=== PATIENT | male | born 1945 | race Caucasian/White ===

== ENCOUNTER → 2017-01-02 | Outpatient (CLI) | payer OTHER | LOC: FIMAGING 12:54 | PROVIDERS: ATTEND Orthopaedic Surgery Hand Surgery | DX: M75.122 Complete rotator cuff tear or rupture of left shoulder, not specified as traumatic (principal); M75.82 Other shoulder lesions, left shoulder; M75.22 Bicipital tendinitis, left shoulder; M25.412 Effusion, left shoulder ==

== ENCOUNTER → 2017-02-03 | Outpatient (CLI) | payer OTHER | LOC: BHLMT 13:15 | PROVIDERS: ATTEND Internal Medicine Interventional Cardiology | DX: I25.10 Atherosclerotic heart disease of native coronary artery without angina pectoris (principal) | CPT/HCPCS: 93017-PO; 93350-PO ==

== ENCOUNTER → 2017-02-10 | Outpatient (CLI) | payer OTHER | LOC: BHFA 09:15 | PROVIDERS: ATTEND Internal Medicine Cardiovascular Disease | DX: R06.02 Shortness of breath (principal); I25.10 Atherosclerotic heart disease of native coronary artery without angina pectoris; I10 Essential (primary) hypertension ==

== ENCOUNTER → 2017-02-17 | Outpatient (CLI) | payer OTHER | LOC: BHFA 09:30 | PROVIDERS: ATTEND Internal Medicine Interventional Cardiology | DX: I25.10 Atherosclerotic heart disease of native coronary artery without angina pectoris (principal); R06.02 Shortness of breath | CPT/HCPCS: 78452; 93017; A9500; J2785 ==

== ENCOUNTER → 2017-08-04 | Outpatient (CLI) | payer OTHER | LOC: FIMAGING 14:29 | PROVIDERS: ATTEND Internal Medicine Cardiovascular Disease | DX: N18.9 Chronic kidney disease, unspecified (principal); K76.0 Fatty (change of) liver, not elsewhere classified; Q61.3 Polycystic kidney, unspecified; I71.2 Thoracic aortic aneurysm, without rupture; I25.10 Atherosclerotic heart disease of native coronary artery without angina pectoris; I12.9 Hypertensive chronic kidney disease with stage 1 through stage 4 chronic kidney disease, or unspecified chronic kidney disease ==

== ENCOUNTER 2017-11-01 12:02 | Inpatient (IN) | payer OTHER ==
[2017-11-01] MEDS ORDERED: IPRATROPIUM/ALBUTEROL 3 ML DEYVIAL IH ONE (13:36)
[2017-11-01] MEDS ORDERED: ALBUTEROL 3 ML DEYVIAL IH ONE ×2 (13:36→15:02)
[2017-11-01] MEDS ORDERED: NS 1,000 ML IV ONE (13:36)
--- NOTE | 2017-11-01 13:39 | EDPHY ---
H & P Stated Complaint: cough Time Seen by Provider: 11/01/17 13:18 HPI/ROS: CHIEF COMPLAINT: Cough HISTORY OF PRESENT ILLNESS: The patient is a 72 y/o male complaining of a cough worsening over the last 3 weeks. He and his were visiting [facility] over the holiday and returned one week ago. He and his began feeling ill on their trip and were evaluated at urgent care at the end of September. He completed a course of azithromycin and has been using cough medicine without improvement. He saw his lamination spinner on for the same symptoms, but his cough felt improved at that time. Since then his cough has worsened and he describes violent coughing fits that cause headaches. He has diffuse myalgias, intermittent mild diaphoresis, and feels dehydrated. He's also been alternating between diarrhea and constipation. Two days ago, his who has similar symptoms fell and he was unable to help her off the floor for 2 days. Their daughter contacted EMS today upon learning about this. His is currently being evaluated here and is positive for flu A. Patient did get a flu vaccination this season. He denies diagnosed respiratory disease history, but says two doctors have recommended Symbicort to him in the last several months. He had open heart surgery for an aortic aneurysm, CABG, and has CAD in addition to diabetes and hypertension. No documented fever, chills, chest pain, palpitations, vomiting, urinary complaints, lightheadedness. REVIEW OF SYSTEMS: Aside from elements discussed in the HPI, a comprehensive 10-point review of systems was reviewed and is negative. PAST MEDICAL HISTORY: 1. Open heart surgery for ascending aortic aneurysm 2013 2. Possible undiagnosed respiratory disease - given trials of Symbicort 3. CAD post CABG 4. Diabetes type II 5. Hypertension 6. Psoriasis 7. Pneumonia 8. Rotator cuff surgery, left knee replacement. SOCIAL HISTORY: Never smoker. , also ill in the ED. Daughter lives in [place]. Display Coordinator: Dr. Rizzo VITAL SIGNS: Reviewed by me. Borderline hypoxic at 89% GENERAL: Well-developed, mildly obese, resting comfortably in no respiratory distress. Occasional cough. HEENT: Atraumatic. Eyes: No icterus, no injection. Mouth: moist mucous membranes. No erythema or lesions. Neck: supple with no adenopathy. LUNGS: Distant but clear to auscultation bilaterally, no wheezes, rhonchi or rales. CARDIAC: Distant. Regular rate and rhythm, no rubs, murmurs or gallops. ABDOMEN: Soft, nontender, nondistended, bowel sounds normal. BACK: No CVA tenderness. EXTREMITIES: No trauma. No edema. Range of motion is normal throughout. NEURO: Alert and oriented, grossly nonfocal. SKIN: Warm and dry, no rash. PSYCHIATRIC: Normal mentation, no agitation. Portions of this note were transcribed by a medical device engineer. I personally performed a history, physical exam, medical decision making, and confirmed accuracy of information the transcribed note. - Personal History Current Tetanus/Diphtheria Vaccine: Yes Current Tetanus Diphtheria and Acellular Pertussis (TDAP): Yes - Medical/Surgical History Hx Asthma: Yes Hx Chronic Respiratory Disease: Yes Hx Diabetes: Yes Hx Cardiac Disease: Yes Hx Renal Disease: No Hx Cirrhosis: No Hx Alcoholism: No Hx HIV/AIDS: No Hx Splenectomy or Spleen Trauma: No Other PMH: gout, ascending aorta repair, L/R rotator cuff surgery, L knee replacement, DM2, psoriatic arthritis, HTN, CABG, psoiasis, PNA - Social History Smoking Status: Never smoked Constitutional: Initial Vital Signs Temperature (C) 36.8 C 11/01/17 12:16 Heart Rate 87 11/01/17 12:16 Respiratory Rate 16 11/01/17 12:16 Blood Pressure 116/60 11/01/17 12:16 O2 Sat (%) 89 L 11/01/17 12:16 O2 Delivery Mode Nasal Cannula O2 (L/minute) 1 Allergies/Adverse Reactions: No Known Allergies Allergy (Unverified 11/01/17 12:13) Home Medications: Medication Instructions Recorded Adalimumab [Humira] 40 mg SQ MO 11/01/17 Allopurinol [Allopurinol 300 MG 600 mg PO DAILY 11/01/17 (RX)] Aspirin [Aspirin 81mg (*)] 81 mg PO DAILY 11/01/17 Azelastine HCl [Astepro] 2 sprays EACHNARE DAILY 11/01/17 Budesonide/Formoterol 160/4.5 1 dose IH DAILY 11/01/17 [Symbicort 160-4.5 Mcg Inh (*)] C/E/Zn/Cu/OM3/DHA/EPA/LUT/ZEAX 1 each PO BID 11/01/17 [Preservision Areds 2 Softgel] Dulaglutide [Trulicity] 1.5 mg SQ FR 11/01/17 Esomeprazole Mag Trihydrate 40 mg PO DAILY 11/01/17 [Nexium] Ezetimibe [Zetia 10 MG (*)] 10 mg PO DAILY 11/01/17 Fluticasone Nasal [Flonase Nasal 2 sprays EACHNARE DAILY 11/01/17 [place] (RX)] Hydrochlorothiazide [HCTZ (*)] 25 mg PO DAILY 11/01/17 Metoprolol Succinate Xr [Toprol Xl 150 mg PO HS 11/01/17 50 mg (*)] Pramipexole Di-HCl [Mirapex 0.25 0.5 mg PO HS 11/01/17 mg (*)] TESTOSTERONE [Androgel 1.62% pump] 1 paula TD DAILY 11/01/17 Valsartan [Diovan] 320 mg PO DAILY 11/01/17 metFORMIN HCL [Glucophage 500 mg 500 mg PO BIDMEAL 11/01/17 (*)] predniSONE 5 mg PO DAILY 11/01/17 Medical Decision Making - Diagnostics Imaging Results: CXR: Impression: Compensated CHF in a patient with previous CABG surgery. No pneumonia. Dictated By: Newton Rangel MD Imaging: Discussed imaging studies w/ on call Radiologist, I viewed and interpreted images myself ED Course/Re-evaluation: This is a 72 y/o male with cardiac disease, open heart surgery, diabetes, and hypertension who presents with a 3-week history of cough that has not improved with antibiotics and OTC medications. His is positive for the flu and sick with similar symptoms. He has distant but clear breath sounds. Presentation suspicious for influenza. Plan for IV, labs, EKG, chest x-ray. Duo neb and 1L IV NS administered. EKG: sinus rhythm, nonspecific st/t changes. Chest x-ray: Increased interstitial markings from prior chest x-ray could be CHF , no infiltrate, prior CABG Flu A+. Creatinine 2.5, higher than any previous labs. Reassessed patient and discussed work up. Recommended admission for renal insufficiency and worsening cough with hypoxemia. He agrees with plan for admission. Spoke with hospitalist service. Dr. Willingham accepts admission. Differential Diagnosis: Differential diagnosis for the patient's cough and dyspnea was considered including but not limited to viral versus bacterial bronchitis, asthma, COPD, pulmonary emboli, upper respiratory infection, lower respiratory infection, congestive heart failure, and cardiac causes. Consult/Admit Bed Type: Wilmer [place] - Data Points Laboratory Results: Laboratory Results 11/02/17 04:13 11/02/17 04:13 Microbiology Results: MICROBIOLOGY 11/01/17 18:00 Urine,Clean Catch Urine Culture - Final Enterococcus Faecalis 11/01/17 17:10 Blood Blood Culture - Preliminary 11/01/17 16:15 Blood Blood Culture - Preliminary Medications Given: Acetaminophen (Tylenol) 650 mg PO Q4HRS PRN PRN Reason: Pain, Mild/Fever, Can Take PO Stop: 04/30/18 15:15 Last Admin: 11/04/17 04:42 Dose: 650 mg Albuterol (Proventil Neb) 3 ml IH Q2HRS PRN PRN Reason: Short of Breath/Dyspnea Stop: 04/30/18 15:15 Last Admin: 11/03/17 17:51 Dose: 3 ml Allopurinol (Allopurinol) 600 mg PO DAILY CONNER Stop: 05/01/18 08:59 Last Admin: 11/04/17 08:46 Dose: 600 mg Aspirin (Aspirin) 81 mg PO DAILY CONNER Stop: 05/01/18 08:59 Last Admin: 11/04/17 08:47 Dose: 81 mg Benzonatate (Tessalon Pearles) 100 mg PO TID PRN PRN Reason: Cough, Mild Stop: 05/01/18 01:05 Last Admin: 11/04/17 08:46 Dose: 100 mg Budesonide/Formoterol Fumarate (Symbicort 160-4.5 Mcg Inhaler) 2 puffs IH DAILY CONNER Stop: 05/02/18 08:59 Last Admin: 11/04/17 08:53 Dose: 2 puffs Ezetimibe (Zetia) 10 mg PO DAILY CONNER Stop: 05/01/18 08:59 Last Admin: 11/04/17 08:47 Dose: 10 mg Enoxaparin Sodium (Lovenox) 40 mg SC BID CONNER Stop: 05/01/18 20:59 Last Admin: 11/04/17 08:47 Dose: 40 mg Fluticasone Propionate (Flonase Nasal [place]) 2 sprays EACHNARE DAILY CONNER Stop: 05/01/18 08:59 Last Admin: 11/04/17 09:33 Dose: 2 sprays Guaifenesin (Mucinex) 600 mg PO BID CONNER Stop: 04/30/18 20:59 Last Admin: 11/04/17 08:47 Dose: 600 mg Guaifenesin/Dextromethorphan (Robitussin Dm Oral Liquid) 10 ml PO Q4HRS PRN PRN Reason: Cough, Moderate Stop: 04/30/18 15:15 Last Admin: 11/04/17 04:42 Dose: 10 ml Metoprolol Succinate (Toprol Xl) 150 mg PO HS CONNER Stop: 05/01/18 20:59 Last Admin: 11/03/17 19:50 Dose: 150 mg Miscellaneous Medication (Azelastine Hcl [Astepro]) 2 sprays EACHNARE DAILY CONNER Stop: 05/01/18 08:59 Last Admin: 11/04/17 09:23 Dose: 2 sprays Miscellaneous Medication (Dulaglutide [Trulicity]) 1.5 mg SQ FR CONNER Stop: 05/03/18 08:59 Last Admin: 11/04/17 09:23 Dose: 1.5 mg Multivitamins/Minerals (Preservision Areds2 Formula) 1 each PO BID CONNER Stop: 05/01/18 20:59 Last Admin: 11/04/17 08:47 Dose: 1 each Oseltamivir Phosphate (Tamiflu Oral Suspension) 30 mg PO BIDMEAL CONNER Stop: 11/06/17 08:01 Last Admin: 11/04/17 08:46 Dose: 30 mg Pantoprazole Sodium (Protonix) 40 mg PO DAILY CONNER Stop: 05/01/18 08:59 Last Admin: 11/04/17 08:46 Dose: 40 mg Pramipexole Dihydrochloride (Mirapex) 0.5 mg PO HS CONNER Stop: 05/01/18 20:59 Last Admin: 11/03/17 20:05 Dose: 0.5 mg Prednisone (Prednisone) 5 mg PO DAILY CONNER Stop: 05/01/18 08:59 Last Admin: 11/04/17 08:46 Dose: 5 mg Discontinued Medications Albuterol (Proventil Neb) 3 ml IH EDNOW ONE Stop: 11/01/17 13:37 Last Admin: 11/01/17 13:49 Dose: 3 ml Albuterol (Proventil Neb) 3 ml IH EDNOW ONE Stop: 11/01/17 15:03 Last Admin: 11/01/17 15:05 Dose: 3 ml Albuterol/Ipratropium (Duoneb) 3 ml IH EDNOW ONE Stop: 11/01/17 13:37 Last Admin: 11/01/17 13:49 Dose: 3 ml Budesonide/Formoterol Fumarate (Symbicort 160-4.5 Mcg Inhaler) 60 puffs IH DAILY CONNER Stop: 05/02/18 08:59 Last Admin: 11/03/17 08:28 Dose: 2 puffs Furosemide (Lasix Injection) 20 mg IVP ONCE ONE Stop: 11/03/17 11:59 Last Admin: 11/03/17 12:17 Dose: 20 mg Heparin Sodium (Porcine) (Heparin Sc Injection) 5,000 unit SC Q8 CONNER Stop: 04/30/18 21:59 Last Admin: 11/02/17 04:23 Dose: 5,000 unit Sodium Chloride (Ns) 1,000 mls @ 0 mls/hr IV ONCE ONE; Wide Open PRN Reason: Protocol Stop: 11/01/17 13:37 Last Admin: 11/01/17 13:49 Dose: 1,000 mls Sodium Chloride (Ns) 500 mls @ 1,000 mls/hr IV EDNOW ONE PRN Reason: Protocol Stop: 11/01/17 15:36 Last Admin: 11/01/17 15:36 Dose: 500 mls Sodium Chloride (Ns) 1,000 mls @ 75 mls/hr IV CONT CONNER Stop: 04/30/18 15:29 Last Admin: 11/02/17 09:40 Dose: 1,000 mls Sodium Chloride (Ns) 500 mls @ 0 mls/hr IV ONCE ONE PRN Reason: Wide Open Stop: 11/01/17 15:26 Last Admin: 11/01/17 15:32 Dose: Not Given Sodium Chloride (Ns) 3,900 mls @ 7,800 mls/hr 30 ml/kg infuse over 30 min ( 3900 ml) IV EDNOW ONE PRN Reason: Protocol Stop: 11/01/17 16:33 Last Admin: 11/01/17 16:11 Dose: 3,900 mls Magnesium Sulfate/Dextrose (Magnesium Sulf 1 Gm (Premix)) 100 mls @ 100 mls/hr IV ONCE ONE Stop: 11/04/17 09:27 Last Admin: 11/04/17 08:46 Dose: 100 mls Oseltamivir Phosphate (Tamiflu) 75 mg PO BIDMEAL CONNER Stop: 11/06/17 08:01 Last Admin: 11/02/17 08:28 Dose: 75 mg Departure - Departure Disposition: [facility] Acute Clinical Impression: Renal insufficiency, Influenza A, Shortness of breath, Cough, Hypoxemia Condition: Fair Report Scribed for: Conchita Duncan Report Scribed by: Amarilis Ward Date of Report: 11/01/17 Time of Report: 15:32
--- NOTE | 2017-11-01 13:57 | CPEKG ---
Heart Rate: 78 RR Interval: 769 P-R Interval: 192 QRSD Interval: 88 QT Interval: 364 QTC Interval: 415 P [place]: 50 QRS [place]: 78 T Wave [place]: 68 EKG Severity - BORDERLINE ECG - EKG Impression: SINUS RHYTHM EKG Impression: PROBABLE LEFT ATRIAL ABNORMALITY EKG Impression: BORDERLINE T ABNORMALITIES, ANT-LAT LEADS Electronically Signed By: Conchita Duncan 01-Nov-2017 21:58:07
[2017-11-01 14:06] LABS: PLATELET COUNT 165 10^3/uL (150-400)
[2017-11-01] MEDS ORDERED: ALBUTEROL 3 ML DEYVIAL ONE (14:59)
[2017-11-01] MEDS ORDERED: NS 500 ML IV ONE ×2 (15:07→15:25)
[2017-11-01] MEDS ORDERED: ONDANSETRON DISINTEGRATING 4 MG TAB PO PRN (15:16)
[2017-11-01] MEDS ORDERED: ONDANSETRON 4 MG/2 ML VIAL IVP PRN (15:16)
[2017-11-01] MEDS ORDERED: OSELTAMIVIR PHOSPHATE 75 MG CAP ONE (15:42)
[2017-11-01] MEDS: NS 1,000 ML IV SCH ×2 (15:43→23:02)
[2017-11-01] MEDS: OSELTAMIVIR PHOSPHATE 75 MG CAP PO SCH (15:46)
[2017-11-01] MEDS ORDERED: NS 3,900 ML IV ONE (16:04)
--- NOTE | 2017-11-01 16:22 | GHP ---
[f rep st] HISTORY AND PHYSICAL DATE OF ADMISSION: 11/01/2017 CHIEF COMPLAINT: Cough, shortness of breath and weakness. HISTORY OF PRESENT ILLNESS: The patient is a 72-year-old male with history of coronary artery disease, prior CABG and chronic kidney disease, who presents to the emergency department with 3 weeks of upper respiratory symptoms. His symptoms started while he was on vacation with his family in [place]. He developed fever and cough. He was treated in the outpatient setting with azithromycin. His symptoms really did not improve. He has continued to have cough, fatigue and reports decreased oral intake. His is also ill with influenza and is being admitted to the hospital. In the emergency department he was noted to desaturate into the 80s on room air, and has received nebulizer treatments. He denies any chest pressure or nausea. His flu swab was positive in the emergency department, and he is admitted to the hospital for further management. PAST MEDICAL AND SURGICAL HISTORY: 1. Coronary artery disease with history of CABG. 2. AAA repair. 3. Chronic kidney disease. 4. Gout. 5. GERD. 6. Hypertension. 7. ? diabetes mellitus. MEDICATIONS: Please see [facility] for completed outpatient medication list. ALLERGIES: He has no known drug allergies. FAMILY HISTORY: Reviewed and noncontributory. SOCIAL HISTORY: The patient is . He lives independently. His is also ill with influenza at this time, and he feels he cannot care for her due to his own weakness and illness. They have a daughter who lives locally. He denies tobacco or alcohol. REVIEW OF SYSTEMS: A 10-point review of systems was performed and is negative as per HPI. OBJECTIVE: VITAL SIGNS: Temperature is 36.8, blood pressure 99/51, heart rate 82, respiratory rate 17, he is 91% on room air. GENERAL: Patient is awake, alert, oriented, in no acute distress. HEENT: Head is atraumatic, normocephalic. Pupils equal, round, react to light. Ocular motion intact. Oropharynx clear. Mucous membranes dry. NECK: Supple. There is no JVD. HEART: Regular rate and rhythm without murmur. LUNGS: Diminished with decreased air exchange, but no wheezes, rales, or rhonchi are detected and overall his lungs are clear. ABDOMEN: Soft, obese, nondistended, nontender. EXTREMITIES: Without cyanosis, clubbing, or edema. NEUROLOGIC: Grossly nonfocal. He moves all 4 extremities. Strength is symmetric and 5/5 in upper and lower extremities bilaterally. LABORATORY DATA: CBC reveals a white blood cell count of 9000, platelets are normal. Lactic acid is 2.6. Basic metabolic panel reveals normal electrolytes , BUN is 50, creatinine 2.5, glucose 121. Troponin is 0.03. Flu A is positive. Chest x-ray is personally reviewed and interpreted, shows chronic stable cardiomegaly. No evidence of acute pulmonary edema or focal infiltrates. There is evidence of his prior CABG. EKG shows normal sinus rhythm. No ST-segment or T-wave changes suggestive of acute ischemia. ASSESSMENT AND PLAN: The patient is a 72-year-old male with history of coronary artery disease, hypertension, and chronic kidney disease, who is admitted to the hospital with influenza. 1. Acute hypoxemic respiratory failure secondary to influenza A. The patient was saturating in the 90s on room air during my evaluation. He will be started on Tamiflu, anti-tussives, expectorant. We will provide nebulizer treatments. Steroids are not indicated at this time in the absence of wheezing. He will require some IV fluids for his volume depletion. 2. Acute on chronic kidney disease. His baseline creatinine is around 1.5 and he presents with creatinine of 2.5 and elevated BUN of 50, suggestive of a prerenal state. He has received 1 L of normal saline in the emergency department. His blood pressure is slightly low at 91/47 at this time. We will provide another normal saline bolus and continue gentle IV hydration overnight and recheck his labs in the morning. 3. Elevated lactate. I think this is related to hypoperfusion in the setting of volume depletion. I do not think he has sepsis or bacterial infection. We will repeat a lactate now, and expect this to improve with hydration. 4. History of coronary artery disease status post coronary artery bypass graft. The patient has no chest pain. His EKG is nonischemic. His troponin is negative. We will continue his outpatient medications. I also reviewed a myocardial perfusion stress test in February of 2017, which was negative for ischemia and showed an ejection fraction of 68%. 5. Hypertension. His SBP was in the 90's in the ED. Anti-hypertensives are held for now, resume as indicated. 6. Deep venous thrombosis prophylaxis. The patient is moderate risk. We will give heparin given his renal status. 7. Code status: Patient is full code. 8. Disposition: Patient admitted to observation status. If he continues to improve, he may be a candidate for discharge tomorrow. /[id number]/MODL MTDD
[2017-11-01 16:28] LABS: INR 1.01 (0.83-1.16); PROTIME(PATIENT) 13.5 SEC (12.0-15.0)
[2017-11-01] MEDS: GUAIFENESIN/DM 10 ML UDCUP PO PRN ×2 (17:41→22:00)
[2017-11-01] MEDS: guaiFENesin 600 MG TAB.ER PO SCH (20:29)
[2017-11-01] MEDS: ALBUTEROL 3 ML DEYVIAL IH PRN (21:33)
[2017-11-01] MEDS: HEPARIN 5,000 UNIT/0.5 ML SYR SC SCH (21:59)
[2017-11-01] MEDS: ACETAMINOPHEN 325 MG TAB PO PRN (22:07)
[2017-11-02] MEDS: ALBUTEROL 3 ML DEYVIAL IH PRN ×2 (01:05→21:36)
[2017-11-02] MEDS: BENZONATATE 100 MG CAP PO PRN ×2 (01:37→21:17)
[2017-11-02] MEDS: GUAIFENESIN/DM 10 ML UDCUP PO PRN ×2 (01:52→21:17)
[2017-11-02] MEDS: ACETAMINOPHEN 325 MG TAB PO PRN ×2 (01:52→15:49)
[2017-11-02] MEDS: HEPARIN 5,000 UNIT/0.5 ML SYR SC SCH (04:23)
[2017-11-02 04:34] LABS: PLATELET COUNT 116 10^3/uL (150-400)
[2017-11-02] MEDS: guaiFENesin 600 MG TAB.ER PO SCH ×2 (08:28→21:17)
[2017-11-02] MEDS: ALLOPURINOL 300 MG TAB PO SCH (08:28)
[2017-11-02] MEDS: OSELTAMIVIR PHOSPHATE 75 MG CAP PO SCH (08:28)
[2017-11-02] MEDS: EZETIMIBE 10 MG TAB PO SCH (08:28)
[2017-11-02] MEDS: ASPIRIN 81 MG CHEWABLE TAB PO SCH (08:28)
[2017-11-02] MEDS: PANTOPRAZOLE SODIUM 40 MG TAB PO SCH (08:28)
[2017-11-02] MEDS: predniSONE 5 MG TAB PO SCH (08:28)
[2017-11-02] MEDS: FLUTICASONE NASAL 120 SPRAYS/16 GM MDI EACHNARE SCH (08:33)
[2017-11-02] MEDS: NS 1,000 ML IV SCH (09:40)
--- NOTE | 2017-11-02 10:23 | ASMTCASEMG ---
Living Arrangements What is your living Answers: With Spouse arrangement? Who do you live with? Type Of Residence What kind of residence do Answers: House you live in? Discharge Plan Comments Coordination Status Comments Notes: Pt is a 72 y/o man admitted for renal insufficiency, influenza A and shortness of breath. Pts is also here at [facility] in room 220 for the flu. Therapies have been ordered and awaiting recommendations. Needs are TBD at this time. CM to follow. Plan: TBD Date Signed: 11/02/2017 10:23 AM Electronically Signed By:ANGELA Stinson
[2017-11-02] MEDS: AZELASTINE HCL EACHNARE SCH (11:03)
--- NOTE | 2017-11-02 14:51 | ASMTCMCOM ---
CM Note CM Note Notes: CM spoke w/ Miranda, daughter regarding d/c POC. CM provided Miranda with d/c options such as HC and home w/ supervision. CM provided Miranda Senior blue book and list of skilled and unskilled HC agencies. OT is recommending home independent. CM to follow. Date Signed: 11/02/2017 02:50 PM Electronically Signed By:ANGELA Stinson
[2017-11-02] MEDS: OSELTAMIVIR 6 MG/ML UDSYR PO SCH (17:00)
--- NOTE | 2017-11-02 17:14 | HOSPPROG ---
Hospitalist Progress Note Assessment/Plan: #Influenza A #Acute on chronic renal failure #HTN #Pedal Edema #Acute hypoxic respiratory failure #generalized weakness and deconditioning Plan: -tamiflu -stop IVF -consider Lasix tomorrow -PT/OT -change to inpatient Subjective: feels slightly better. still hypoxic. has some pedal edema Objective: Vital Signs Temp Pulse Resp BP Pulse Ox 36.8 C 102 H 20 138/77 H 94 11/02/17 15:30 11/02/17 15:30 11/02/17 15:30 11/02/17 15:30 11/02/17 15:30 Laboratory Results 11/02/17 04:13 11/02/17 04:13 11/01/17 11/02/17 11/03/17 05:59 05:59 05:59 Intake Total 5700 750 Output Total 220 1300 Balance 5480 -550 PT 13.5 SEC (12.0-15.0) 11/01/17 13:55 INR 1.01 (0.83-1.16) 11/01/17 13:55 - Physical Exam Constitutional: no apparent distress Eyes: PERRL Ears, Nose, Mouth, Throat: moist mucous membranes, hearing normal Cardiovascular: regular rate and rhythym, edema Respiratory: reduced air movement, expiratory wheeze Gastrointestinal: normoactive bowel sounds, soft, non-tender abdomen Skin: warm Musculoskeletal: generalized weakness Neurologic: AAOx3 Psychiatric: interacting appropriately, not anxious, not encephalopathic Lymph, Heme, Immunologic: No petechiae ICD10 Worksheet Patient Problems: Problems Problem Status Onset Cough Acute Hypoxemia Acute Influenza A Acute Renal insufficiency Acute Shortness of breath Acute
--- NOTE | 2017-11-02 17:46 | PDMN ---
Medical Necessity Medical necessity: Change to IP, as of 11/02/17, per MD; los >2 mn for ongoing management/tx of Influenza A, acute on chronic renal failure, htn, pedal edema, acute hypoxic respiratory failure & generalized weakness/deconditioning; admit for further monitoring, supportive care & therapies; hx CAD, CABG, AAA repair, CKD, htn & diabetes; per progress note & order 11/02/17
[2017-11-02] MEDS: ENOXAPARIN 40 MG/0.4 ML SYR SC SCH (21:17)
[2017-11-02] MEDS: PRESERVISION AREDS2 FORMULA EYE VIT 1 EACH PO SCH (21:18)
[2017-11-02] MEDS: METOPROLOL SUCCINATE XR 50 MG TAB PO SCH (21:18)
[2017-11-02] MEDS: PRAMIPEXOLE 0.25 MG TAB PO SCH (21:18)
[2017-11-03] MEDS: GUAIFENESIN/DM 10 ML UDCUP PO PRN ×3 (04:17→23:47)
[2017-11-03] MEDS: BENZONATATE 100 MG CAP PO PRN (04:17)
[2017-11-03] MEDS: ACETAMINOPHEN 325 MG TAB PO PRN ×3 (04:27→17:28)
[2017-11-03] MEDS: PRESERVISION AREDS2 FORMULA EYE VIT 1 EACH PO SCH ×2 (07:57→19:50)
[2017-11-03] MEDS: ASPIRIN 81 MG CHEWABLE TAB PO SCH (07:57)
[2017-11-03] MEDS: ALLOPURINOL 300 MG TAB PO SCH (07:57)
[2017-11-03] MEDS: predniSONE 5 MG TAB PO SCH (07:57)
[2017-11-03] MEDS: ENOXAPARIN 40 MG/0.4 ML SYR SC SCH ×2 (07:58→19:50)
[2017-11-03] MEDS: PANTOPRAZOLE SODIUM 40 MG TAB PO SCH (07:58)
[2017-11-03] MEDS: EZETIMIBE 10 MG TAB PO SCH (07:58)
[2017-11-03] MEDS: guaiFENesin 600 MG TAB.ER PO SCH ×2 (07:58→19:50)
[2017-11-03] MEDS: FLUTICASONE NASAL 120 SPRAYS/16 GM MDI EACHNARE SCH (07:59)
[2017-11-03] MEDS: AZELASTINE HCL EACHNARE SCH (07:59)
[2017-11-03] MEDS: OSELTAMIVIR 6 MG/ML UDSYR PO SCH ×2 (08:01→17:28)
[2017-11-03] MEDS: ALBUTEROL 3 ML DEYVIAL IH PRN ×3 (08:25→17:51)
[2017-11-03] MEDS ORDERED: BUDESONIDE/FORMOTEROL 160/4.5 60 PUFFS/MDI IH SCH (09:00)
[2017-11-03] MEDS ORDERED: FUROSEMIDE 20 MG/2 ML VIAL IVP ONE (11:58)
[2017-11-03] MEDS: BUDESONIDE/FORMOTEROL 160/4.5 60 PUFFS/MDI IH SCH (12:21)
[2017-11-03] MEDS ORDERED: PROTOCOL MAGNESIUM 1 DOSE IV PRN (15:15)
[2017-11-03] MEDS ORDERED: PROTOCOL POTASSIUM 1 DOSE MISC PRN (15:15)
--- NOTE | 2017-11-03 15:18 | HOSPPROG ---
Hospitalist Progress Note Assessment/Plan: #Influenza A #Acute on chronic renal failure #HTN #Pedal Edema with cough #Acute hypoxic respiratory failure #generalized weakness and deconditioning #Hyperkalemia Plan: -Lasix x 1. This should help with the cough as well as the hyperkalemia -check Magnesium -tamiflu -off IVF -PT/OT -change to inpatient Subjective: + cough. + SOB. + increased pedal edema Objective: Vital Signs Temp Pulse Resp BP Pulse Ox 37.3 C 87 20 129/87 H 97 11/03/17 13:30 11/03/17 13:30 11/03/17 13:30 11/03/17 13:30 11/03/17 13:30 Laboratory Results 11/03/17 04:16 11/02/17 11/03/17 11/04/17 05:59 05:59 05:59 Intake Total 350 Output Total 600 Balance -250 PT 13.5 SEC (12.0-15.0) 11/01/17 13:55 INR 1.01 (0.83-1.16) 11/01/17 13:55 - Physical Exam Constitutional: no apparent distress Eyes: PERRL Ears, Nose, Mouth, Throat: moist mucous membranes, hearing normal Cardiovascular: regular rate and rhythym, edema (1-2+ LE) Respiratory: other (coarse) Gastrointestinal: normoactive bowel sounds Genitourinary: no bladder fullness Skin: warm Musculoskeletal: generalized weakness Neurologic: AAOx3 Psychiatric: interacting appropriately, not anxious, not encephalopathic ICD10 Worksheet Patient Problems: Problems Problem Status Onset Cough Acute Hypoxemia Acute Influenza A Acute Renal insufficiency Acute Shortness of breath Acute
--- NOTE | 2017-11-03 15:20 | ASMTCMCOM ---
CM Note CM Note Notes: Case reviewed in morning rounds w/ Dr. Kuo and Fiona, RN. Therapies have cleared pt to discharge home independent. CM spoke w/ daughter, Miranda regarding d/c POC. Anticipate d/c for tomorrow. CM available for changes. Plan: Independent Date Signed: 11/03/2017 03:19 PM Electronically Signed By:ANGELA Stinson
[2017-11-03] MEDS: METOPROLOL SUCCINATE XR 50 MG TAB PO SCH (19:50)
[2017-11-03] MEDS: PRAMIPEXOLE 0.25 MG TAB PO SCH (20:05)
[2017-11-04] MEDS: ACETAMINOPHEN 325 MG TAB PO PRN ×2 (04:42→23:36)
[2017-11-04] MEDS: GUAIFENESIN/DM 10 ML UDCUP PO PRN ×2 (04:42→18:04)
[2017-11-04 05:20] LABS: PLATELET COUNT 138 10^3/uL (150-400)
[2017-11-04] MEDS ORDERED: MAGNESIUM SULF 1 GM/DEXTROSE 100 ML IV ONE (08:28)
[2017-11-04] MEDS: OSELTAMIVIR 6 MG/ML UDSYR PO SCH ×2 (08:46→18:04)
[2017-11-04] MEDS: predniSONE 5 MG TAB PO SCH (08:46)
[2017-11-04] MEDS: BENZONATATE 100 MG CAP PO PRN ×2 (08:46→18:04)
[2017-11-04] MEDS: ALLOPURINOL 300 MG TAB PO SCH (08:46)
[2017-11-04] MEDS: PANTOPRAZOLE SODIUM 40 MG TAB PO SCH (08:46)
[2017-11-04] MEDS: ASPIRIN 81 MG CHEWABLE TAB PO SCH (08:47)
[2017-11-04] MEDS: EZETIMIBE 10 MG TAB PO SCH (08:47)
[2017-11-04] MEDS: guaiFENesin 600 MG TAB.ER PO SCH ×2 (08:47→20:55)
[2017-11-04] MEDS: PRESERVISION AREDS2 FORMULA EYE VIT 1 EACH PO SCH ×2 (08:47→20:55)
[2017-11-04] MEDS: ENOXAPARIN 40 MG/0.4 ML SYR SC SCH ×2 (08:47→20:52)
[2017-11-04] MEDS: BUDESONIDE/FORMOTEROL 160/4.5 60 PUFFS/MDI IH SCH (08:53)
[2017-11-04] MEDS ORDERED: Dulaglutide [Trulicity] 1.5 MG SQ SCH (09:00)
[2017-11-04] MEDS: AZELASTINE HCL EACHNARE SCH (09:23)
[2017-11-04] MEDS: FLUTICASONE NASAL 120 SPRAYS/16 GM MDI EACHNARE SCH (09:33)
[2017-11-04] MEDS: ALBUTEROL 3 ML DEYVIAL IH PRN ×2 (12:42→16:39)
--- NOTE | 2017-11-04 12:55 | ASMTCMCOM ---
CM Note CM Note Notes: Chart reviewed. Spoke to Katherine one of the Patient's daughters to update her on patient status. Both of her parent are here with influenza A. I updated her as far as the discharge plan. No discharge orders pending, CM to follow. Date Signed: 11/04/2017 12:54 PM Electronically Signed By:Melissa Lozano RN
--- NOTE | 2017-11-04 13:41 | HOSPPROG ---
Hospitalist Progress Note Assessment/Plan: 72y male with c/o cough and weakness. First encounter, chart reviewed. D/W Dr Kuo. #Influenza A cont tamiflu #Acute on chronic renal failure improving #HTN stable #Pedal Edema with cough decreased edema cough still present #Acute hypoxic respiratory failure mutlifactorial start levaquin #generalized weakness and deconditioning cont therapy #Hyperkalemia replace #Hypomagnesimia replace #Dispo possibly home in am if improving cont supportive care Subjective: Still feels terrible. Weak and coughing. Objective: Vital Signs Temp Pulse Resp BP Pulse Ox 37.1 C 87 20 129/79 H 92 11/04/17 08:00 11/04/17 12:43 11/04/17 12:43 11/04/17 08:00 11/04/17 12:43 Laboratory Results 11/04/17 05:09 11/04/17 05:09 11/03/17 11/04/17 11/05/17 05:59 05:59 05:59 Intake Total 350 400 Output Total 600 Balance -250 400 PT 13.5 SEC (12.0-15.0) 11/01/17 13:55 INR 1.01 (0.83-1.16) 11/01/17 13:55 - Physical Exam Constitutional: chronically ill appearing, obese, uncomfortable Eyes: PERRL, anicteric sclera, EOMI Ears, Nose, Mouth, Throat: moist mucous membranes, hearing normal, ears appear normal Cardiovascular: regular rate and rhythym, edema, No JVD Respiratory: no respiratory distress, reduced air movement, expiratory wheeze Gastrointestinal: No tenderness, No ascites, No guarding Skin: warm, normal color, No erythema Musculoskeletal: normal joint ROM, no joint effusions, generalized weakness Neurologic: AAOx3 Psychiatric: interacting appropriately, not encephalopathic, thought process linear ICD10 Worksheet Patient Problems: Problems Problem Status Onset Renal insufficiency Acute Influenza A Acute Shortness of breath Acute Cough Acute Hypoxemia Acute
[2017-11-04] MEDS: METOPROLOL SUCCINATE XR 50 MG TAB PO SCH (20:52)
[2017-11-04] MEDS: PRAMIPEXOLE 0.25 MG TAB PO SCH (20:52)
[2017-11-04 23:30] VITALS: RESP 18
[2017-11-05 07:50] VITALS: BP 154/82; TEMP 98.3
[2017-11-05] MEDS ORDERED: MAGNESIUM SULF 1 GM/DEXTROSE 100 ML IV ONE (08:24)
[2017-11-05] MEDS: predniSONE 5 MG TAB PO SCH (08:54)
[2017-11-05] MEDS: PANTOPRAZOLE SODIUM 40 MG TAB PO SCH (08:54)
[2017-11-05] MEDS: OSELTAMIVIR 6 MG/ML UDSYR PO SCH (08:54)
[2017-11-05] MEDS: ENOXAPARIN 40 MG/0.4 ML SYR SC SCH (08:54)
[2017-11-05] MEDS: EZETIMIBE 10 MG TAB PO SCH (08:54)
[2017-11-05] MEDS: PRESERVISION AREDS2 FORMULA EYE VIT 1 EACH PO SCH (08:54)
[2017-11-05] MEDS: ACETAMINOPHEN 325 MG TAB PO PRN (08:54)
[2017-11-05] MEDS: guaiFENesin 600 MG TAB.ER PO SCH (08:54)
[2017-11-05] MEDS: ASPIRIN 81 MG CHEWABLE TAB PO SCH (08:54)
[2017-11-05] MEDS: ALLOPURINOL 300 MG TAB PO SCH (08:54)
[2017-11-05] MEDS: AZELASTINE HCL EACHNARE SCH (08:55)
[2017-11-05] MEDS: FLUTICASONE NASAL 120 SPRAYS/16 GM MDI EACHNARE SCH (08:55)
[2017-11-05] MEDS: BUDESONIDE/FORMOTEROL 160/4.5 60 PUFFS/MDI IH SCH (09:47)
[2017-11-05 10:48] VITALS: PULSE 89; O2SAT 91
--- NOTE | 2017-11-05 17:26 | ASDISCHSUM ---
Discharge Information Plan Status:Home with No Needs Medically Cleared to Leave: Discharge Date:11/05/2017 02:25 PM CM D/C Disposition:Home, Routine, Self-Care ADT D/C Disposition:Home, Routine, Self-Care Projected Discharge Date:11/05/2017 02:25 PM Transportation at D/C:Family Discharge Delay Reason: Follow-Up Date:11/05/2017 02:25 PM Discharge Slot: Final Diagnosis: Placement Information Patient Contact Information Contact Name:BETY Relationship: Address:[address] Work Phone: [facility] Phone: [facility]/Zip Code:[place] [address] Email: Financial Information Financial Class: Primary Plan Desc:MEDICARE INPATIENT Primary Plan Number:[id number] Secondary Plan Desc:[facility] Secondary Plan Number:[id number] Assessment Information [facility] Initial CM Assessment Living Arrangements What is your living Answers: With Spouse arrangement? Who do you live with? Type Of Residence What kind of residence do Answers: House you live in? Discharge Plan Comments Coordination Status Comments Notes: Pt is a 72 y/o man admitted for renal insufficiency, influenza A and shortness of breath. Pts is also here at [facility] in room 220 for the flu. Therapies have been ordered and awaiting recommendations. Needs are TBD at this time. CM to follow. Plan: TBD Date Signed: 11/02/2017 10:23 AM Electronically Signed By:ANGELA Stinson [facility] CM Progress Note CM Note CM Note Notes: CM spoke w/ Miranda, daughter regarding d/c POC. CM provided Miranda with d/c options such as HC and home w/ supervision. CM provided Miranda Senior blue book and list of skilled and unskilled HC agencies. OT is recommending home independent. CM to follow. Date Signed: 11/02/2017 02:50 PM Electronically Signed By:ANGELA Stinson [facility] L[place]ASZ Progress Note CM Note LUKASZ Note Notes: Case reviewed in morning rounds w/ Dr. Kuo and HIEU Jaimes. Therapies have cleared pt to discharge home independent. CM spoke w/ daughterMiranda regarding d/c POC. Anticipate d/c for tomorrow. CM available for changes. Plan: Independent Date Signed: 11/03/2017 03:19 PM Electronically Signed By:ANGELA Stinson [facility] [place] Progress Note LUKASZ Smith CM Note Notes: Chart reviewed. Spoke to Katherine one of the Patient's daughters to update her on patient status. Both of her parent are here with influenza A. I updated her as far as the discharge plan. No discharge orders pending, CM to follow. Date Signed: 11/04/2017 12:54 PM Electronically Signed By:Melissa Lozano RN Case Management Discharge Plan Note Case Management Discharge Discharge Order Complete? Answers: Yes Patient to Obtain Answers: via Family Medications Transportation Arranged Answers: Family/Friends Family Notified Answers: Yes Discharge Comments Notes: Pt. d/cing independently today. Siria met w/ daughter Miranda in Pt's 's room today. also here as inpatient for flu. Miranda states colleague CM provided list of unskilled nursing agencies for Pt. and . Discussed skilled vs unskilled providers. Family good with plan. Miranda plans to be at home with parents tonight at the least. Date Signed: 11/05/2017 02:14 PM Electronically Signed By:Maite Jarvis LCSW Intervention Information Intervention Type:*LOS-Signed Date of Service:11/02/2017 09:50 AM Patient Type:Observation Staff Member:Inés Benjamin Hours: Discipline: Severity: Comment:
--- NOTE | 2017-11-05 19:16 | GDS ---
[f rep st] DISCHARGE SUMMARY DISCHARGE DIAGNOSES: 1. Influenza. 2. Acute hypoxemic respiratory failure. 3. Acute on chronic renal failure. 4. Hypertension. 5. Pedal edema. 6. Generalized weakness with deconditioning. 7. Hyperkalemia. 8. Hypomagnesemia. PHYSICAL EXAM: GENERAL: The patient is alert. VITAL SIGNS: Afebrile 36.8, pulse is 80, respirator y rate is 18, blood pressure is 154/82. He is saturating at 90% on room air. I have seen and evalua tomasz the patient on the day of discharge. HOSPITAL COURSE: The patient is a 72-year-old male, who presented to the emergency room with complai nts of shortness of breath and weakness. He was evaluated and diagnosed with: 1. Influenza A. during this hospitalization, he was treated with Tamiflu and has improved. 2. Acute on chronic renal failure. This is improving. The patient has returned to his baseline candace al function. 3. Hypertension. It is mildly elevated today. However, the patient has not been receiving all of h is home antihypertensive medications. These have been re-initiated at the time of disposition, and h e will continue these in the outpatient setting. 4. Acute hypoxemic respiratory failure, multifactorial. This condition has resolved, and he will no t require supplemental oxygen at the time of disposition. 5. Generalized weakness with deconditioning. He has been evaluated by therapy, and feel that it is safe for him to be discharged home. 6. Electrolyte imbalances. These have been resolved. 7. Disposition. The patient will be discharged home with his and his daughter. His will receive home health care. There are no pending studies. DISCHARGE MEDICATIONS: Please refer to EMR form. I have provided a prescription for Levaquin, as we ll as Tamiflu at the time of disposition. There are no pending studies. FOLLOWUP: With his primary care physician early next week for further evaluation and to assure resol ution of his acute infectious process. I spent greater than 35 minutes in the care, coordination, and management of this patient's dispositi on. /[id number]/MODL
[2017-11-07] MEDS ORDERED: Adalimumab [Humira Pen] 40 MG SQ SCH (09:00)
== END 2017-11-05 14:25 | disposition home or self-care (01) | DRG 193 ==
LOC: F2W 17:19 → OBSVTOIN 11-02 17:15 → F3E 11-03 16:24
PROVIDERS: ADMIT Hospitalist; ATTEND Hospitalist
DX: J10.1 Influenza due to other identified influenza virus with other respiratory manifestations (principal); J96.01 Acute respiratory failure with hypoxia; N17.9 Acute kidney failure, unspecified; E87.5 Hyperkalemia; E83.42 Hypomagnesemia; E11.22 Type 2 diabetes mellitus with diabetic chronic kidney disease; I12.9 Hypertensive chronic kidney disease with stage 1 through stage 4 chronic kidney disease, or unspecified chronic kidney disease; N18.3 Chronic kidney disease, stage 3 (moderate); K21.9 Gastro-esophageal reflux disease without esophagitis; I25.10 Atherosclerotic heart disease of native coronary artery without angina pectoris; E66.9 Obesity, unspecified; Z68.41 Body mass index [BMI] 40.0-44.9, adult; Z87.01 Personal history of pneumonia (recurrent); Z95.1 Presence of aortocoronary bypass graft
CPT/HCPCS: 97116-GP; 97161-GP; 97165-GO; 97535-GO; G0378; G8978-GP-CI; G8979-GP-CH; G8987-GO-CI; G8988-GO-CI; J1650; J1940; J3475; J7512; J7613

== ENCOUNTER → 2018-03-08 | Outpatient (CLI) | payer OTHER | LOC: CIMAGING 15:40 | PROVIDERS: ATTEND Specialist | DX: R91.8 Other nonspecific abnormal finding of lung field (principal); I51.7 Cardiomegaly | CPT/HCPCS: 71046-PO ==

== ENCOUNTER → 2018-03-22 | Outpatient (CLI) | payer OTHER | LOC: BHFA 11:30 | PROVIDERS: ATTEND Internal Medicine | DX: I25.10 Atherosclerotic heart disease of native coronary artery without angina pectoris (principal); R06.02 Shortness of breath | CPT/HCPCS: 78452; 93017; 93306; A9500; J2785 ==

== ENCOUNTER → 2018-07-22 | Outpatient (CLI) | payer OTHER | LOC: FCPNEURO 21:30 | PROVIDERS: ATTEND Student in an Organized Health Care Education/Training Program | DX: G47.33 Obstructive sleep apnea (adult) (pediatric) (principal) ==